=== PATIENT | male | born 1960 | race Caucasian/White ===

== ENCOUNTER → 2024-06-24 12:53 | Outpatient (BNVA) | payer OTHER, SELFPAY | PROVIDERS: Visit Provider Nurse Practitioner | DX: M25.562 Pain in left knee (principal) | CPT/HCPCS: 73562; 84550 ==

== ENCOUNTER → 2024-07-14 13:37 | Outpatient (BNVA) | payer MEDICAID, SELFPAY | PROVIDERS: PCP Nurse Practitioner; Visit Provider Nurse Practitioner | DX: R03.0 Elevated blood-pressure reading, without diagnosis of hypertension (principal); Z12.5 Encounter for screening for malignant neoplasm of prostate; M25.561 Pain in right knee | CPT/HCPCS: 85025 ==